=== PATIENT | female | born 1970 | race Caucasian/White ===

== ENCOUNTER 2018-02-01 14:00 | Outpatient (CLI) | payer OTHER ==
[2018-02-01 15:09] LABS: #Basophils 0.1 thou/uL (0.0-0.2); #Eosinphils 0.3 thou/uL (0.0-0.7); #Lymphocytes 2.2 thou/uL (1.20-3.40); #Monocytes 0.5 thou/uL (0.11-0.59); #Neutrophils 4.1 thou/uL (1.40-6.50); %Eosinophils 4.2 % (0.0-10.0); %Lymphocytes 30.9 % (21.0-51.0); %Monocytes 6.9 % (0.0-10.0); Hemoglobin 14.4 g/dL (12.0-16.0); Mean Corpuscular Hemoglobin 29.6 pg (27.0-31.0); Mean Corpuscular Volume 89.5 fL (78.0-98.0); Mean Platelet Volume 10.8 fL (7.4-10.4); Platelet Count 171 thou/uL (130-400); RBC Distribution Width 13.6 % (11.5-14.5); Red Blood Cell (RBC) Count 4.87 mill/uL (4.20-5.40); White Blood Cell (WBC) Count 7.2 thou/uL (4.8-10.8)
[2018-02-01 15:29] LABS: ALT (SGPT) 149 U/L (8-55); AST (SGOT) 116 U/L (5-34); Albumin 4.5 g/dL (3.5-5.0); Alkaline Phosphatase 118 U/L (40-150); Anion Gap 13 mmol/L (10-20); BUN (Urea Nitrogen) 11 mg/dL (7.0-18.7); Bilirubin, Direct 0.1 mg/dL (0.1-0.3); Bilirubin, Total 0.4 mg/dL (0.2-1.2); Calc. Creatinine Clearance 0 mL/min (70-130); Calcium 9.7 mg/dL (7.8-10.44); Carbon Dioxide 24 mmol/L (22-29); Chloride 105 mmol/L (98-107); Estimated GFR-MDRD 63; Glucose 184 mg/dL (70-105); Protein, Total 8.1 g/dL (6.0-8.3); Sodium 138 mmol/L (136-145)
== END 2018-02-01 14:01 | disposition home or self-care (01) ==
LOC: LABBT 14:00
PROVIDERS: ATTEND Surgery
DX: Z01.812 Encounter for preprocedural laboratory examination (principal); K80.20 Calculus of gallbladder without cholecystitis without obstruction; K75.9 Inflammatory liver disease, unspecified
CPT/HCPCS: 80048; 80076; 85025

== ENCOUNTER 2018-02-02 11:04 | Day surgery (SDC) | payer OTHER ==
[2018-02-01 14:05] VITALS: BMI 34.3
[~2018-02-02 11:04] MED LIST: Glycopyrrolate 0.2 MG/ML 5 ML SYRINGE ONE; Lidocaine 1% PF 5 ML VIAL ONE; Metoclopramide HCl 10 MG/2 ML VIAL ONE; Ondansetron HCl/PF 4 MG/2 ML Vial ONE; PROPOFOL 200 MG/20 ML VIAL ONE; ePHEDrine/0.9% NaCl/PF SYRINGE 50 mg/10 ml ONE
[2018-02-02] MEDS ORDERED: CEFAZOLIN/Water 2 GM/20 ML SYRINGE ONE (11:41)
[2018-02-02] MEDS ORDERED: Midazolam HCl 2 mg/2 ml Vial ONE ×2 (11:47→11:49)
[2018-02-02] MEDS ORDERED: Fentanyl 250 MCG/5 ML VIAL ONE (11:49)
[2018-02-02] MEDS ORDERED: Iothalamate Meglumine 60% 50 ML VIAL FS ONE (12:04)
[2018-02-02] MEDS ORDERED: Bupivacaine/Epinephrine 0.25% 30 ML VIAL ONE (12:04)
[2018-02-02] MEDS ORDERED: HYDROmorphone 2 MG/ML VIAL ONE (13:45)
--- NOTE | 2018-02-02 14:35 | RAD ---
INTRAOPERATIVE CHOLANGIOGRAM: Date: 02/02/18 HISTORY: Cholecystitis. FINDINGS/IMPRESSION: Intraoperative fluoroscopy was provided for cholangiogram as performed by Dr. Macario. Spot fluorosco pic images show operative hardware to overlie the gallbladder fossa. Contrast opacification of a nond ilated cystic duct remnant and common duct. No filling defects. Contrast extends into the duodenum. Fluoro Time: 8 seconds. POS: [facility]
[2018-02-02] MEDS ORDERED: HYDROcodone/Acetaminophen 5/325 mg Tablet ONE (16:07)
--- NOTE | 2018-02-05 13:20 | OP ---
DATE OF PROCEDURE: 02/02/2018 PREOPERATIVE DIAGNOSIS: Symptomatic gallstones with elevated liver tests. POSTOPERATIVE DIAGNOSIS: Symptomatic gallstones with elevated liver tests. PROCEDURES: 1. Laparoscopic cholecystectomy with intraoperative cholangiogram. 2. Core needle biopsy of liver. SURGEON: Larry Macario M.D. ANESTHESIA: General. ESTIMATED BLOOD LOSS: Minimal. COMPLICATIONS: None. SPECIMENS: None. FINDINGS: Normal cholangiogram. PROCEDURE IN DETAIL: The patient was taken to the operating room, placed supine on the table. After general anesthetic was obtained, the abdomen was prepped and draped in a sterile fashion. Straight incision made above the umbilicus. Cautery was used to dissect down to and score the fascia. Abdomi nal cavity entered bluntly using a Maribel clamp. Holding stitch of PDS placed on each side of the fas phillip. Benitez trocar was placed. High flow pneumoperitoneum was obtained. Upper midline 5-mm port an d 2 right upper quadrant 5 mm port were placed under direct visualization. The gallbladder was extr acted from the gallbladder fossa. The peritoneum was opened anteriorly and posteriorly. Critical vi ew triangle was seen showing only the cystic duct and cystic artery branching from medial to lateral. There were no other branching structures. A clip was placed on the cystic duct. A small ductotomy was made just proximal to that. A cholangiocatheter was brought in through a separate stab incision and cholangiogram was performed, which shows good contrast flow into the duodenum without obstructio n. Cholangiocatheter was removed and 2 clips were placed proximal on the cystic duct and cystic duct was cut using laparoscopic scissors. Cystic artery was taken using the same way. Cautery was used to dissect the gallbladder out of the gallbladder fossa. Gallbladder was placed in an Endocatch bag and brought out through the Johann. No bleeding or bile in the liver bed. Core needle biopsy of the liver was preformed x3. There is no bleeding. All incisions infiltrated using local anesthetic. A ll ports were removed under camera visualization and pneumoperitoneum was let down. PDS was used to close the fascial below the umbilicus. All incisions were irrigated and closed using 4-0 Monocryl an d Dermabond. The patient was en route to recovery in stable condition. All instrument counts, need le counts, and lap counts were correct.
== END 2018-02-02 17:10 | disposition home or self-care (01) ==
LOC: SDC 11:04
PROVIDERS: ATTEND Surgery
PROC: 0FB04ZX Excision of Liver, Percutaneous Endoscopic Approach, Diagnostic (ICD-10-PCS; principal; 2018-02-02)
PROC: 0FT44ZZ Resection of Gallbladder, Percutaneous Endoscopic Approach (ICD-10-PCS; principal; 2018-02-02)
PROC: BF101ZZ Fluoroscopy of Bile Ducts using Low Osmolar Contrast (ICD-10-PCS; principal; 2018-02-02)
DX: K80.10 Calculus of gallbladder with chronic cholecystitis without obstruction (principal); K75.81 Nonalcoholic steatohepatitis (NASH); E11.9 Type 2 diabetes mellitus without complications; G43.909 Migraine, unspecified, not intractable, without status migrainosus; Z87.891 Personal history of nicotine dependence; Z79.84 Long term (current) use of oral hypoglycemic drugs; Z79.899 Other long term (current) drug therapy
CPT/HCPCS: 47532; 88304; 88307; 88313; 96374; J1170; J2001; J2250; J2405; J2704; J2765; J3010; Q9961

== ENCOUNTER 2019-01-28 11:57 | Outpatient (CLI) | payer OTHER ==
--- NOTE | 2019-01-28 13:11 | ULT ---
EXAM: Right upper quadrant ultrasound PROVIDED CLINICAL HISTORY: Abnormal labs COMPARISON: None FINDINGS: Visualized portions of the pancreas appear normal. The hepatic parenchyma appears echogenic with resp ect to the right kidney, compatible with fatty infiltration. Liver demonstrates no mass or intrahepatic biliary ductal dilatation. The common duct appears prominent, measuring about 1 cm. The gallbladder is not visualized, compatible with the provided clinical history of prior cholecystectomy. Right kidney demonstrates no hydronephrosis or mass. IMPRESSION: 1. Fatty infiltration of the liver. 2. Prominence of the common duct, presumably on the basis of postcholecystectomy status. Correlate [facility] laboratory values.
== END 2019-01-28 11:58 | disposition home or self-care (01) ==
LOC: BICULT 11:57
PROVIDERS: ATTEND Physician Assistant Medical
DX: K76.0 Fatty (change of) liver, not elsewhere classified (principal); R10.11 Right upper quadrant pain; R74.8 Abnormal levels of other serum enzymes; K21.9 Gastro-esophageal reflux disease without esophagitis; Z90.49 Acquired absence of other specified parts of digestive tract
CPT/HCPCS: 76705